=== PATIENT | female | born 1940 | race Caucasian/White ===

== ENCOUNTER → 2016-09-18 | Outpatient (CLI) | payer MEDICARE, BC ==
[~2016-09-18] MED LIST: ALEVE220 M1 PO; ALLEGRA-D1 TAB.SR1 PO; ATENOLOL PO; CALCIUM 500 + D1 TAB PO; CENTRUM SILVER1 EAC2 PO; CYMBALTA PO; DARVOCET-N 1001 TAB PO; FLAGYL PO; LEVAQUIN PO; LISINOPRIL PO; LODINE PO; LORTAB 5/500 TA1 TA2 PO; MEDI-MECLIZINE25 M1 PO; MULTI-VITAMIN1 TAB PO; NEXIUM PO; NORVASC PO; PHENERGAN25 M1 PO; PRAVACHOL PO; PRAVASTATIN SOD40 MG PO; PRILOSEC PO; PRINIVIL40 MG PO; PROZAC PO; PROZAC40 MG PO; ROLAIDS; VITAMIN D1000 UNI2 PO; ZOFRAN8 MG PO
--- NOTE | ~2016-09-18 | CT92 ---
[facility] A Service of [facility] [place] RADIOLOGY TEXT RESULTS PATIENT: [facility] UN[facility] #: [id number] AGE: [address]: David Mike MD SEX: F ORDER DR: [id number] [facility] [address] [place], [place] [address] [id number] O MR#: [id number] Acc #: [id number] NAME: VONNIE HARPER : 1940 SEX: F STUDY DATE/TIME: 09/18/2016 9:00 UNIT: [facility] ROOM: STUDY DESCRIPTION: CT Lower Ext Lt Wo Cont Attending Physician: David Mike M.D. Referring Physician: David Mike M.D. Ordering Physician: David Mkie M.D. Primary Care Physician: Keith Jacome M.D. MEDICAL IMAGING REPORT This report is preliminary unless electronic signature is present EXAM CT left knee without contrast 09/18/2016 HISTORY 75-year-old female with left knee pain for 4 and a half months. Patient states pain began after lifting something. No prior left knee surgery COMPARISON STUDIES Comparison none. TECHNIQUE Helical scan performed through the left knee without IV contrast. Coronal and sagittal reformatted images. This CT exam was performed with one or more of the following radiation dose reduction techniques: automatic exposure control, adjustment of mA and/or kV according to patient size, and iterative reconstruction. FINDINGS Bony demineralization is noted. There is no evidence of a displaced fracture or dislocation. Chondrocalcinosis is noted in the medial and lateral compartments. There is mild arthrosis in both the medial and lateral compartments. Mild patellofemoral degenerative change. There is a small joint effusion. Small popliteal cyst. The marked area of pain along the medial aspect of the proximal leg demonstrates no abnormalities in the subcutaneous soft tissues. There is some fatty atrophy in the medial aspect of the soleus, which is nonspecific and likely related to chronic denervation. IMPRESSION 1. Osteopenia. No evidence of a displaced fracture or dislocation. If clinical symptoms persist and there is concern for a radiographically occult fracture, then MRI may be considered. [facility]. [facility] A Service of [facility] [place] RADIOLOGY TEXT RESULTS PATIENT: VONNIE HARPER LOCATION: [facility] : 42 UNIT #: [id number] AGE: [address]: David Mike MD SEX: F ORDER DR: 2. Mild tricompartmental arthrosis of the knee. Chondrocalcinosis in the medial and lateral compartments. 3. Small joint effusion and small popliteal cyst. 4. No soft tissue abnormalities noted in the marked area of pain along the medial aspect of the proximal leg. There is incidental note of some fatty atrophy in the medial half of the visualized soleus, which is nonspecific and likely secondary to chronic denervation. Dictated by... Derek Cruz M.D. THIS IS AN ELECTRONICALLY VERIFIED REPORT Derek Cruz M.D. at 09/22/2016 7:30 AM Nain TD: 09/21/2016 15:54 JOB #: [id number] MEDICAL IMAGING REPORT Page 1 of 1 COPY
== END | disposition home or self-care (01) ==
LOC: CCAT 08:39
DX: M25.469 Effusion, unspecified knee (principal); M25.569 Pain in unspecified knee
CPT/HCPCS: 73700